=== PATIENT | male | born 1955 | race Caucasian/White ===

== ENCOUNTER → 2016-11-29 | Day surgery (SDC) | payer OTHER ==
[~2016-11-29] VITALS: Ht 172.7 cm; Wt 97.5 kg
[~2016-11-29] MED LIST: 0.9% Sodium Chloride 1,000 ML IV SCH; Sodium Chloride LOK Flush 10 mL Syringe IV PRN; fentaNYL-PF 50 mCg/mL 2 mL Inj IVPUSH PRN
[2016-11-29 08:27] VITALS: BP 122/85; PULSE 63; RESP 16; O2SAT 97
[2016-11-29 10:03] VITALS: BP 126/76; PULSE 55; RESP 12; O2SAT 94
[2016-11-29 10:05] VITALS: BP 131/78; PULSE 54; RESP 14; O2SAT 100
[2016-11-29 10:21] VITALS: BP 135/88; PULSE 53; RESP 12; O2SAT 98
[2016-11-29 10:26] VITALS: BP 137/88; PULSE 56; RESP 12; O2SAT 93
--- NOTE | 2016-11-29 11:13 | ENDO ---
[address] [address] ENDOSCOPY PROCEDURE PATIENT: RADHA KONG : 1955 MR#: [id number] ADMIT: 11/29/2016 JOB ID: [id number] PROCEDURE: Colonoscopy. INDICATION: History of colon polyps. Patient's ASA classification is two. Mallampati score is two. MEDICATIONS: Versed 6 mg, fentanyl 150 mcg. INSTRUMENT USED: PCF H 190 DL. PREPARATION QUALITY: Fair. PROCEDURE DETAILS: After informed consent was obtained, the patient was brought into the GI suite where he was placed on oxygen via nasal cannula and monitored with continuous pulse oximeter, telemetry, and blood pressure monitoring. A time-out was performed, then he was placed in the left lateral decubitus position and medications were administered for sedation. Digital rectal exam was performed, which was unremarkable. The colonoscope was then inserted into the rectum and advanced under direct visualization to the cecum, which was identified by the presence of the ileocecal valve and appendiceal orifice. Once the cecum was reached, the colonoscope was withdrawn back into the rectum as the mucosa and lumen were examined. In the rectum retroflexion was performed. Following retroflexion, the remaining air in the rectum was suctioned and the procedure was completed. FINDINGS: 1. In the transverse colon there was an approximately 5 mm sessile polyp that was removed with a hot snare. 2. Scattered diverticula were seen throughout the left side of the colon. IMPRESSION: 1. Transverse colon polyp. 2. Left-sided diverticulosis. RECOMMENDATIONS: 1. Repeat colonoscopy pending polyp pathology results. 2. Fiber rich diet. BLOOD LOSS: Zero. COMPLICATIONS: During the end of the procedure, the patient became bradycardic, with hypotension. This, however, resolved with IV fluid bolus.
--- NOTE | 2016-12-03 14:39 | PATH ---
SURGICAL PATHOLOGY Attending Physician:Tameka Hernandez CASE STATUS: Signed Out PATIENT NAME: RADHA KONG PID: [id number] : 1955 DATE COLLECTED:11/29/2016 18:31 SPECIMEN: Colon, Polyp CLINICAL HISTORY: 1). TRANSVERSE POLYP X 1 FINAL DIAGNOSIS: 1.TRANSVERSE POLYP, BIOPSY: - TUBULAR ADENOMA. ICD10 D12.6 GROSS DESCRIPTION: The specimen is received in formalin, labeled with the patient's name, sublabeled as transverse polyp, and consists of a cummings glistening rubbery sessile polyp (0.4 x 0.2 x 0.1 cm) with a cummings-white homogenous cut surface. Ink code: black-resection margin. Section code: (A) polyp, bisected. Specimen entirely submitted. 11/30/16 JM MICRO DESCRIPTION: See diagnosis. ICD-9 CODES: CPT CODES: 1: 00255 Electronically Signed Out Molina Mckeon MD [facility] [address], [place] [address] Technical component performed at [facility], [address] [place] [address] Ave[address], [place], [address]
== END | disposition home or self-care (01) ==
LOC: END 00:04
PROVIDERS: ATTEND Internal Medicine Gastroenterology
DX: Z12.11 Encounter for screening for malignant neoplasm of colon (principal); Z86.010 Personal history of colon polyps; D12.3 Benign neoplasm of transverse colon; K57.30 Diverticulosis of large intestine without perforation or abscess without bleeding
CPT/HCPCS: 45385; 93005; 99153; G0500; J2250; J3010; J7030